=== PATIENT | male | born 2000 | race Asian ===

== ENCOUNTER 2025-02-27 18:54 | Inpatient (IN) | payer OTHER ==
[~2025-02-27] VITALS: Ht 172.7 cm; Wt 83.6 kg
[2025-02-27 19:54] LABS: PLATELET COUNT, AUTOMATED 340 10^3/uL (150-450)
[2025-02-27 20:22] LABS: AMPHETAMINES LEVEL URINE NEGATIVE (NEGATIVE); BARBITURATES URINE NEGATIVE (NEGATIVE); BENZODIAZEPINES URINE NEGATIVE (NEGATIVE); CANNABINOIDS URINE NEGATIVE (NEGATIVE); COCAINE METABOLITE URINE NEGATIVE (NEGATIVE); METHADONE URINE NEGATIVE (NEGATIVE); OPIATES URINE NEGATIVE (NEGATIVE); PHENCYCLIDINE URINE NEGATIVE (NEGATIVE)
[2025-02-27 20:25] LABS: ETHYL ALCOHOL (ETHANOL) < 0.003 % (0.000-0.010)
[2025-02-27 20:26] LABS: ALT/SGPT 13 U/L (7.0-40); AST/SGOT 13 U/L (<34); CALCIUM LEVEL 9.1 MG/DL (8.5-10.1); CARBON DIOXIDE LEVEL 26 MMOL/L (20-31); CHLORIDE LEVEL 104 MMOL/L (98-107); CREATININE FOR GFR 0.88 MG/DL (0.70-1.30); GLOMERULAR FILTRATION RATE > 90.0 (>60); POTASSIUM SERUM 4.3 MMOL/L (3.5-5.1); SALICYLATE LEVEL < 3.0 MG/DL (<30); SODIUM LEVEL 140 MMOL/L (136-145)
[2025-02-27] MEDS ORDERED: MOM 30 ML SUSPENSION UDC PO PRN (20:55)
[2025-02-27] MEDS ORDERED: IBUPROFEN 400 MG TAB PO PRN (20:55)
[2025-02-27] MEDS ORDERED: ACETAMINOPHEN 325 MG TAB PO PRN (20:55)
[2025-02-27] MEDS ORDERED: traZODone 50 MG TAB PO PRN (20:55)
[2025-02-27] MEDS ORDERED: MAALOX 30 ML SUSP *UDC PO PRN (20:55)
[2025-02-27] MEDS ORDERED: HOME MED LIST COMPLETE! XX SCH (21:15)
[2025-02-27 22:37] VITALS: BP 147/90; TEMP 97.6; O2SAT 99
[2025-02-28 06:22] VITALS: BP 138/72; TEMP 97.5; O2SAT 98
[2025-02-28 15:13] VITALS: BP 144/78; TEMP 98; O2SAT 97
[2025-03-01 06:13] VITALS: BP 137/91; TEMP 97.9; O2SAT 99
== END 2025-03-01 09:49 | disposition home or self-care (01) | DRG 881 ==
LOC: M ED 18:54 → M ED INP 20:52 → M PSY 22:09
PROVIDERS: ADMIT General Practice; ATTEND General Practice
DX: F43.21 Adjustment disorder with depressed mood (principal); R45.851 Suicidal ideations; Z91.82 Personal history of military deployment; Z56.6 Other physical and mental strain related to work; Z63.0 Problems in relationship with spouse or partner; Z90.49 Acquired absence of other specified parts of digestive tract; F17.290 Nicotine dependence, other tobacco product, uncomplicated